=== PATIENT | male | born 1960 | race Caucasian/White ===

== ENCOUNTER 2017-07-01 10:56 | Emergency (ER) | payer SELFPAY ==
[~2017-07-01] VITALS: Ht 175.3 cm; Wt 90.0 kg
[2017-07-01 10:59] VITALS: BP 162/121; PULSE 85; RESP 16; TEMP 98.7; O2SAT 98
--- NOTE | 2017-07-01 11:27 | PD ---
HPI Chief Complaint: Injury Time Seen by Provider: 11:26 Travel History International Travel<30 days: No Contact w/Intl Traveler<30days: No Traveled to known affect area: No History of Present Illness HPI 57-year-old male presents the emergency department with injury to the right shoulder 4 days ago. 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 He felt sudden onset pain in the right shoulder, but played out again. He saw the sports statistician at the game, felt it was probably just a muscle pull. Patient continues to have pain and decreased range of motion in the shoulder. He denies numbness or tingling. His pain currently is about an 8 out of 10. He has no known drug allergies. PFSH Social History Alcohol Use: Yes Tobacco Use: No Substance Use: No Allergies-Medications (Allergen,Severity, Reaction): Coded Allergies: No Known Allergies (Unverified , 07/01/17) Reported Meds & Prescriptions Reported Meds & Active Scripts Active Hydralazine (Hydralazine HCl) 100 Mg Tab 100 Mg PO BID 30 Days Take with meals Ibuprofen 800 Mg Tab 800 Mg PO Q8H PRN Review of Systems Except as stated in HPI: all other systems reviewed are Neg General / Constitutional: No: Fever Eyes: No: Visual changes HENT: No: Headaches Cardiovascular: No: Chest Pain or Discomfort Respiratory: No: Shortness of Breath Gastrointestinal: No: Abdominal Pain Genitourinary: No: Dysuria Musculoskeletal: Positive: Arthralgias, Limited ROM, Pain Skin: No Rash Neurologic: No: Weakness Psychiatric: No: Depression Endocrine: No: Polydipsia Hematologic/Lymphatic: No: Easy Bruising Physical Exam Narrative GENERAL: Patient appears in no obvious distress. SKIN: Warm and dry. Normal color. Normal turgor. No signs of trauma. HEAD: Atraumatic. Normocephalic. EYES: Pupils equal and round. No scleral icterus. No injection or drainage. ENT: No nasal bleeding or discharge. Mucous membranes pink and moist. Pharynx is clear. Airway is patent. NECK: Trachea midline. Supple nontender. CARDIOVASCULAR: Regular rate and rhythm. RESPIRATORY: No accessory muscle use. Clear to auscultation. Breath sounds equal bilaterally. GASTROINTESTINAL: Abdomen soft, non-tender, nondistended. Hepatic and splenic margins not palpable. MUSCULOSKELETAL: Extremities without clubbing, cyanosis, or edema. Patient has limited range of motion of the right arm specifically in the shoulder with what appears to be an external rotation, and he is unable to fully put the arm down against his body and it is out approximately 30. Patient is also unable to lift the arm more than 70 bilaterally, unable to rotate the arm to touch his other shoulder. There is no crepitus or significant swelling noted. There is no ecchymosis. 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 NEUROLOGICAL: Awake and alert. No obvious cranial nerve deficits. Motor grossly within normal limits. Five out of 5 muscle strength in the arms and legs. Normal speech. PSYCHIATRIC: Appropriate mood and affect; insight and judgment normal. Data Data Last Documented VS Vital Signs Date Time Temp Pulse Resp B/P (MAP) Pulse Ox O2 Delivery O2 Flow Rate FiO2 07/01/17 14:03 76 18 150/84 (106) 98 Room Air 07/01/17 12:00 4.00 07/01/17 10:59 98.7 Orders Orders Shoulder, Limited(2vws) (07/01/17 ) Iv Access Insert/Monitor (07/01/17 11:35) Ecg Monitoring (07/01/17 11:35) Oximetry (07/01/17 11:35) NPO (07/01/17 11:35) Morphine Inj (Morphine Inj) (07/01/17 11:45) Sodium Chlor 0.9% 1000 Ml Inj (Ns 1000 M (07/01/17 11:35) Sodium Chloride 0.9% Flush (Ns Flush) (07/01/17 11:45) Propofol 200 Mg/20 Ml Inj (Diprivan 200 (07/01/17 12:00) Ed Discharge Order (07/01/17 12:57) Shoulder, Limited(2vws) (07/01/17 ) Morphine Inj (Morphine Inj) (07/01/17 13:15) Hydralazine Inj (Apresoline Inj) (07/01/17 13:45) MDM Medical Decision Making Medical Screen Exam Complete: Yes Emergency Medical Condition: Yes Differential Diagnosis Right shoulder pain. Right shoulder fracture. Right shoulder dislocation. Narrative Course X-ray of the right shoulder is obtained showing anterior dislocation per radiologist. Conscious sedation is performed by myself and Dr. herzog, please see his note. Patient tolerated the reduction of the shoulder well and was reduction x-rays good placement. Patient is given ibuprofen 800 mg 3 times daily with food as needed for pain. # 30. She has blood pressure is noted to be 239/106 consecutively. Patient was given 10 mg hydralazine IV and his blood pressure improved to 154/ 86. Patient is placed in a sling and swath by [employer]. Patient is to maintain the sling until seen by orthopedist in follow-up. Patient is sent home with hydralazine 100 mg twice a day #60. Patient should follow-up with local primary care physician regarding his high blood pressure. Patient is referred to Dr. Lyles, the orthopedic on-call for follow-up. Work note is given. Diagnosis Primary Impression: Dislocation of shoulder, right, closed Qualified Codes: S43.004A - Unspecified dislocation of right shoulder joint, initial encounter Additional Impression: Hypertension Referrals: Geoff Lyles MD call for appointment Patient Instructions: General Instructions, How to Use a Sling (GEN), Shoulder Manipulation (DC) Departure Forms: Work Release Special Instructions: No use of right arm until cleared by orthopedist. Med/Other Pt SpecificInfo: Prescription(s) given Scripts Hydralazine (Hydralazine) 100 Mg Tab 100 MG PO BID for Blood Pressure Management for 30 Days, #60 TAB 0 Refills Take with meals Prov: Daren Linares MD 07/01/17 Ibuprofen (Ibuprofen) 800 Mg Tab 800 MG PO Q8H Y for Pain/Inflammation, #60 TAB 0 Refills Prov: Daren Linares MD 07/01/17 Disposition: 01 DISCHARGE HOME Condition: Stable [place] Jul 01, 2017 11:26
[2017-07-01] MEDS ORDERED: SODIUM CHLOR 0.9% 1000 ML INJ 1,000 ML IV SCH (11:35)
--- NOTE | 2017-07-01 11:38 | RADRPT ---
EXAM DATE/TIME: 07/01/2017 11:20 [facility] COMPARISON: No previous studies available for comparison. INDICATIONS : Joint pain. MEDICAL HISTORY : None. SURGICAL HISTORY : None. ENCOUNTER: Initial ACUITY: 4 - 6 days PAIN SCORE: 7/10 LOCATION: Right Shoulder joint. FINDINGS: Two view examination of the right shoulder demonstrates an anterior joint dislocation. The bony struc tures are grossly intact.. CONCLUSION: Anterior joint dislocation. Yeyo Hernández MD on July 01, 2017 at 11:36 Board Certified Radiologist. This report was verified electronically.
[2017-07-01] MEDS ORDERED: SODIUM CHLORIDE 0.9% FLUSH 10 ML FLUSH IV FLUSH PRN (11:45)
[2017-07-01] MEDS ORDERED: MORPHINE SULFATE 4 MG/ML INJ IV PUSH ONE ×2 (11:45→13:15)
[2017-07-01 11:55] VITALS: O2SAT 98
[2017-07-01 12:00] VITALS: O2SAT 100
[2017-07-01] MEDS ORDERED: PROPOFOL 200 MG/20 ML AMP IV ONE (12:00)
[2017-07-01] MEDS ORDERED: IBUP1TAB7 PO (12:39)
--- NOTE | 2017-07-01 12:57 | PD ---
Data Data Last Documented VS Vital Signs Date Time Temp Pulse Resp B/P (MAP) Pulse Ox O2 Delivery O2 Flow Rate FiO2 07/01/17 10:59 98.7 85 16 162/121 (135) 98 Orders Orders Shoulder, Limited(2vws) (07/01/17 ) Iv Access Insert/Monitor (07/01/17 11:35) Ecg Monitoring (07/01/17 11:35) Oximetry (07/01/17 11:35) NPO (07/01/17 11:35) Morphine Inj (Morphine Inj) (07/01/17 11:45) Sodium Chlor 0.9% 1000 Ml Inj (Ns 1000 M (07/01/17 11:35) Sodium Chloride 0.9% Flush (Ns Flush) (07/01/17 11:45) Propofol 200 Mg/20 Ml Inj (Diprivan 200 (07/01/17 12:00) Shoulder, Limited(2vws) (07/01/17 ) MDM Supervised Visit with ROSSANA: Yes Narrative Course The history, exam, and medical decision-making in the associated mid-level provider note were completed with my assistance. I reviewed and agree with the findings presented. I attest that I had a [id number] encounter with the patient on the same day, and personally performed and documented my assessment and findings in the medical record. *My assessment and Findings: 57-year-old man with shoulder dislocation times about 5 days. Following informed consent, we did procedural sedation and myself and PA and the Renetta, the [employer], reduced the shoulder. Patient tolerated well. Procedures Procedure Narrative After the risks and benefits were discussed the following procedure was performed: MODERATE SEDATION: The patient was placed on a ekg monitor and pulse oximetry. An ambu bag and suction was immediately available at bedside. The patient was monitored by the nurse. Oxygen saturation, heart rate and blood pressure were monitored. Procedural sedation was acheived using propofol. The patient was observed until awake and alert. Procedural Sedation time in attendance was 20 minutes. Shoulder reduction: Following informed consent and procedural sedation, myself and [address] Renetta in the [employer] together were able to reduce the shoulder with a combination of traction countertraction. Patient tolerated well. Diagnosis Primary Impression: Dislocation of shoulder, right, closed Qualified Codes: S43.004A - Unspecified dislocation of right shoulder joint, initial encounter Referrals: Geoff Lyles MD call for appointment Patient Instructions: General Instructions, How to Use a Sling (GEN), Shoulder Manipulation (DC), Moderate Sedation (ED) Departure Forms: Work Release Special Instructions: No use of right arm until cleared by orthopedist. Scripts Ibuprofen (Ibuprofen) 800 Mg Tab 800 MG PO Q8H Y for Pain/Inflammation, #60 TAB 0 Refills Prov: Daren Linares MD 07/01/17 Disposition: 01 DISCHARGE HOME Condition: Stable Daren Linares MD Jul 01, 2017 12:57
[2017-07-01 13:28] VITALS: BP 269/138; PULSE 77; RESP 18; O2SAT 100
--- NOTE | 2017-07-01 13:28 | RADRPT ---
EXAM DATE/TIME: 07/01/2017 12:24 [facility] COMPARISON: SHOULDER RIGHT LTD (2VWS), July 01, 2017, 11:20. INDICATIONS : Post reduction right shoulder. MEDICAL HISTORY : None. SURGICAL HISTORY : None. ENCOUNTER: Subsequent ACUITY: 4 - 6 days PAIN SCORE: Non-responsive. LOCATION: Right shoulder. FINDINGS: As the interval reduction of the right shoulder which now appears in normal anatomic alignment. No ev idence for acute bony fracture. Remainder of the exam is unchanged. CONCLUSION: 1. Interval reduction of the right shoulder without evidence for acute bony fracture. Sukumar Sosa MD on July 01, 2017 at 13:26 Board Certified Radiologist. This report was verified electronically.
[2017-07-01] MEDS ORDERED: hydrALAZINE HCL 20 MG/ML VIAL IV PUSH ONE (13:45)
[2017-07-01 14:03] VITALS: BP 150/84; PULSE 76; RESP 18; O2SAT 98
[2017-07-01] MEDS ORDERED: HYDR-3801 PO (14:06)
[2017-07-01 14:27] VITALS: BP 149/86
== END 2017-07-01 14:28 | disposition home or self-care (01) ==
LOC: NEPD 10:56
DX: S43.004A Unspecified dislocation of right shoulder joint, initial encounter (principal); I10 Essential (primary) hypertension; W01.0XXA Fall on same level from slipping, tripping and stumbling without subsequent striking against object, initial encounter
CPT/HCPCS: 23650; 73030; 96361; 96374; 96375; 96376; 99156; 99284; J0360; J2270; J7030